=== PATIENT | female | born 1955 | race Caucasian/White ===

== ENCOUNTER 2016-12-28 06:26 | Day surgery (SDC) | payer OTHER ==
[~2016-12-28] VITALS: Ht 160 cm; Wt 85.0 kg
[~2016-12-28 06:26] MED LIST: ASPI-556 PO; BUPR150T3 PO; CIDE300T3 PO; GINGKO BILOBA PO; HYDR25TA PO; LEVO150 PO; RANI150T7 PO; SODIUM CHLORIDE 0.9% 1,000 ML IV ONE; TOPI25CA2 PO
[2016-12-28] MEDS ORDERED: SODIUM CHLORIDE 0.9% 1,000 ML IV ONE (06:30)
[2016-12-28] MEDS ORDERED: FentaNYL CITRATE-PF 100 MCG/2 ML VIAL ONE (07:48)
[2016-12-28] MEDS ORDERED: MIDAZOLAM HCL 5 MG/ML VIAL ONE (07:48)
[2016-12-28] MEDS ORDERED: NALOXONE HCL 1 MG/ML 2 ML SYG IVP PRN (08:30)
== END 2016-12-28 09:35 | disposition home or self-care (01) ==
LOC: SURGERY 06:26
PROVIDERS: ATTEND Internal Medicine Gastroenterology
DX: Z12.11 Encounter for screening for malignant neoplasm of colon (principal); E89.0 Postprocedural hypothyroidism; F12.90 Cannabis use, unspecified, uncomplicated; Z86.59 Personal history of other mental and behavioral disorders; Z87.19 Personal history of other diseases of the digestive system; Z86.79 Personal history of other diseases of the circulatory system; Z98.890 Other specified postprocedural states
CPT/HCPCS: G0121; J2250; J3010; J7030